=== PATIENT | female | born 1995 | race Caucasian/White ===

== ENCOUNTER 2017-08-19 08:18 | Emergency (ER) | payer SELFPAY ==
[~2017-08-19] VITALS: Ht 160 cm; Wt 92.5 kg
[2017-08-19 08:28] VITALS: BP 144/98
--- NOTE | 2017-08-19 09:07 | RAD ---
EXAM: Left shoulder, 3 views. HISTORY: Pain. COMPARISON: None. FINDINGS: 3 views of the left shoulder obtained. There is no fracture, dislocation or subluxation. IMPRESSION: No acute osseous finding. Electronically signed by: Sarita Bardales MD (08/19/2017 9:04 AM) [facility]
[2017-08-19] MEDS ORDERED: IBUP800T19 PO (09:15)
--- NOTE | 2017-08-19 09:15 | PHYS DOC ---
Past History Past Medical History: No Pertinent History Past Surgical History: No Surgical History Alcohol Use: None Drug Use: None Adult General Chief Complaint Chief Complaint: SHOULDER INJURY HPI HPI 21-year-old right-handed female patient states she woke up at 2 AM because of left shoulder pain without known injury as a constant pain that getting worse with movement of her hand and episodes of fingers numbness of patient denies weakness, fever and chills, history of the same problem. Patient states she took ibuprofen with mild improvement of her pain. Review of Systems Review of Systems Constitutional: Denies fever or chills [] Eyes: Denies change in visual acuity, redness, or eye pain [] HENT: Denies nasal congestion or sore throat [] Respiratory: Denies cough or shortness of breath [] Cardiovascular: No additional information not addressed in HPI [] GI: Denies abdominal pain, nausea, vomiting, bloody stools or diarrhea [] : Denies dysuria or hematuria [] Musculoskeletal: Denies back pain , reports joint pain[] Integument: Denies rash or skin lesions [] Neurologic: Denies headache, focal weakness or sensory changes [] Endocrine: Denies polyuria or polydipsia [] All other systems were reviewed and found to be within normal limits, except as documented in this note. Allergies Allergies Allergies Coded Allergies Type Severity Reaction Last Updated Verified latex Allergy Unknown 08/19/17 Yes Physical Exam Physical Exam Constitutional: Well developed, well nourished, mild distress, non-toxic appearance. [] HENT: Normocephalic, atraumatic Eyes: PERRLA, EOMI, conjunctiva normal, no discharge. [] Neck: Normal range of motion, no tenderness, supple, no stridor. [] Cardiovascular:Heart rate regular rhythm, no murmur [] Lungs & Thorax: Bilateral breath sounds clear to auscultation [] Extremities: Right shoulder without deformity or ecchymosis, limited range of motion secondary to pain, no neurovascular deficit Neurologic: Alert and oriented X 3, normal motor function, normal sensory function, no focal deficits noted. [] Psychologic: Affect normal, judgement normal, mood normal. [] Current Patient Data Vital Signs Vital Signs Date Time Temp Pulse Resp B/P (MAP) Pulse Ox O2 Delivery O2 Flow Rate FiO2 08/19/17 08:34 20 Room Air 08/19/17 08:28 98.3 88 97 EKG EKG [] Radiology/Procedures Radiology/Procedures [][address] [address] IMAGING REPORT Signed PATIENT: MICHELLE LOVE ACCOUNT: [id number] : 1995 LOCATION: ER AGE: 21 SEX: F EXAM STATUS: REG ER ORD. PHYSICIAN: MARILYN MAYNARD MD REASON: injury PROCEDURE: SHOULDER 2+V LEFT EXAM: Left shoulder, 3 views. HISTORY: Pain. COMPARISON: None. FINDINGS: 3 views of the left shoulder obtained. There is no fracture, dislocation or subluxation. IMPRESSION: No acute osseous finding. Electronically signed by: Sarita Méndez MD (08/19/2017 9:04 AM) [facility] DICTATED AND SIGNED BY: SARITA MÉNDEZ MD DATE: 08/19/17902 CC: MARILYN MAYNARD MD; PCP,NO ~ Course & Med Decision Making Course & Med Decision Making discharge: I've spoken with the patient and/or caregivers. I've explained the patient's condition, diagnosis and treatment plan based on information available to me at this time. I've answered the patient's and/or caregivers questions and addressed any concerns. The patient and/or caregivers have a good understanding the patient's diagnosis, condition and treatment plan as can be expected at this point. Vital signs have been stabilized. The patient's condition is stable for discharge from the emergency department. The patient will pursue further outpatient evaluation with her primary care provider or other designated consulting physician as outlined in the discharge instructions. Patient and/or caregivers are agreeable to this plan of care and follow-up instructions have been explained in detail. The patient and/or caregivers have received these instructions in written format and expressed understanding of these discharge instructions. The patient and her caregivers are aware that if any significant change in condition or worsening of symptoms should prompt him to immediately return to this of the closest emergency department. If an emergent department is not readily available I would encourage him to call 911. Garrett Disclaimer Dragon Disclaimer This electronic medical record was generated, in whole or in part, using a voice recognition dictation system. Departure Departure: Impression: Primary Impression: Sprain of left shoulder Disposition: HOME, SELF-CARE (At 0912) Condition: STABLE Referrals: PCP,BRYANNA (PCP) Patient Instructions: Shoulder Sprain, Sling Use After Injury or Surgery, Easy- to-Read Additional Instructions: Apply ice on the affected area Follow-up with your primary care physician in 3-5 days Return to ER if not getting better Scripts Ibuprofen (IBUPROFEN) 800 Mg Tablet 1 TAB PO TID, #30 TAB Prov: MARILYN MAYNARD MD 08/19/17 MARILYN MAYNARD MD Aug 19, 2017 09:15
== END 2017-08-19 09:29 | disposition home or self-care (01) ==
LOC: ER 08:18
DX: S43.402A Unspecified sprain of left shoulder joint, initial encounter (principal); Z91.040 Latex allergy status; X58.XXXA Exposure to other specified factors, initial encounter; Y93.89 Activity, other specified; Y99.8 Other external cause status; Y92.89 Other specified places as the place of occurrence of the external cause
CPT/HCPCS: 73030; 99284

== ENCOUNTER 2021-01-21 10:10 | Emergency (ER) | payer SELFPAY ==
[~2021-01-21] VITALS: Ht 160 cm; Wt 106.8 kg
[~2021-01-21 10:10] MED LIST: IBUP800T19 PO
[2021-01-21 11:12] VITALS: BP 139/93
[2021-01-21] MEDS ORDERED: ONDANSETRON ODT 4 MG TAB.RAPDIS PO ONE (11:30)
--- NOTE | 2021-01-21 11:33 | PHYS DOC ---
Past History Past Medical History: No Pertinent History (PORTILLO DE LA TORRE APRN) Past Surgical History: No Surgical History (PORTILLO DE LA TORRE APRN) Alcohol Use: None Drug Use: None (PORTILLO DE LA TORRE APRN) Adult General Chief Complaint Chief Complaint: CHEST PAIN HPI HPI Patient is a 25-year-old female who presents emergency department complaining of mid right-sided back pain for the past 3 days, patient reports a similar episode last week that seemed to self resolve. Patient reports taking 1 tablet of 800 mg ibuprofen last night without relief in her 10 out of 10 back pain. Patient reports it seems to be getting worse and radiating up to her chest area. Patient denies shortness of breath, fever chills, vomiting or diarrhea, patient reports she feels a little nausea. Reports she has not had a period in approximately 3 years and uses an IUD. Patient denies prescription medication use. Patient denies increased urinary frequency, burning with urination, urinary pressure, denies vaginal discharge, denies abdominal pains or discomfort, denies STI concerns. Patient states she works at [employer] and lifts heavy boxes, denies back injury however states she could have strained her back and not realized it. Patient denies history of IV drug use, denies history of immunosuppression, cancers, bowel or bladder incontinence, denies urinary retention, denies numbness or tingling to her genitals or buttocks. Patient denies other physical complaints or physical concerns. (PORTILLO DE LA TORRE APRN) Review of Systems Review of Systems 14 body systems of review of systems have been reviewed. See HPI for pertinent positives and negative responses, otherwise all other systems are negative, nonpertinent or noncontributory. Constitutional: Negative except as outlined in HPI above. Skin: Negative except as outlined in HPI above. Eyes: Negative except as outlined in HPI above. HENT: Negative except as outlined in HPI above. Respiratory: Negative except as outlined in HPI above. Cardiovascular: Negative except as outlined in HPI above. GI: Negative except as outlined in HPI above. : Negative except as outlined in HPI above. Musculoskeletal: Negative except as outlined in HPI above. Integument: Negative except as outlined in HPI above. Neurologic: Negative except as outlined in HPI above. Endocrine: Negative except as outlined in HPI above. Lymphatic: Negative except as outlined in HPI above. Psychiatric: Negative except as outlined in HPI above. (PORTILLO DE LA TORRE APRN) Current Medications Current Medications Current Medications Medications (Trade) Dose Ordered Sig/Fred Start Time Stop Time Status Last Admin Dose Admin Ondansetron HCl (Zofran Odt) 4 mg 1X ONCE 01/21/21 11:30 01/21/21 11:31 UNV (PORTILLO DE LA TORRE APRN) Allergies Allergies Allergies Coded Allergies Type Severity Reaction Last Updated Verified latex Allergy Unknown 08/19/17 Yes (OPRTILLO DE LA TORRE APRN) Physical Exam Physical Exam Constitutional: Well developed, well nourished, no acute distress, non-toxic appearance. 24-year-old female in no apparent distress. HENT: Normocephalic, atraumatic. Eyes: Conjunctiva normal, no discharge. Neck: Normal range of motion, no stridor. Cardiovascular: No cyanosis appreciated, distal cap refill less than 2 seconds. Lungs & Thorax: Patient is in no respiratory distress, no audible adventitious lung sounds appreciated. Abdomen: Nontender, no abnormalities noted. Skin: Warm, dry, no erythema, no rash. Back: No deformities appreciated, no left-sided or right-sided CVA TTP, no midline spinal tenderness to palpation, pain to palpation of mid thoracic right- sided back muscular structures. Extremities: No tenderness, no cyanosis, no clubbing, ROM intact, no edema. Neurologic: Alert and oriented X 3, normal motor function, normal sensory function, no focal deficits noted. Psychologic: Affect normal, judgement normal, mood normal. (PORTILLO DE LA TORRE APRN) Current Patient Data Vital Signs Vital Signs Date Time Temp Pulse Resp B/P (MAP) Pulse Ox O2 Delivery O2 Flow Rate FiO2 01/21/21 11:12 98.0 76 16 139/93 (108) 98 Room Air (PORTILLO DE LA TORRE APRN) EKG EKG EKG performed at 1034 by ED nursing staff shows normal sinus rhythm without other ectopy, paraneural 0.126, QTc interval 0.448, heart rate 78 bpm, no acute STEMI, no ACS, no acute ischemia appreciated, EKG interpreted by ED attending physician Dr. Li. (PORTILLO DE LA TORRE APRN) Radiology/Procedures Radiology/Procedures STATUS: REG ER ORD. PHYSICIAN: PORTILLO DE LA TORRE APRN REASON: Chest pain PROCEDURE: CHEST AP ONLY Single view of the chest. 01/21/2021 11:33 AM Indication: Reason: Chest pain Comparison: None Findings: There is no focal consolidation. There is no pleural effusion or pneumothorax. The cardiomediastinal silhouette and pulmonary vasculature are within normal limits. No acute osseous abnormalities are seen. Impression: No evidence of acute cardiopulmonary process. Electronically signed by: James Koroma MD (01/21/2021 12:04 PM) [id number] (PORTILLO DE LA TORRE APRN) Heart Score C/O Chest Pain: Yes HEART Score for Chest Pain: HEART Score for Chest Pain Response (Comments) Value History Slighlty/Non-Suspicious 0 ECG Normal 0 Age < 45 0 Risk Factors 1 or 2 Risk Factors 1 Total 1 Risk Factors: Risk Factors: DM, Current or recent (<one month) smoker, HTN, HLP, family history of CAD, obesity. Risk Scores: Risk Factors: DM, Current or recent (<one month) smoker, HTN, HLP, family history of CAD, obesity. (PORTILLO DE LA TORRE APRN) Course & Med Decision Making Course & Med Decision Making Pertinent Labs and Imaging studies reviewed. (See chart for details) 25-year-old female, vital signs reviewed, presents emergency department concerning right mid back pain. Physical examination consistent with musculoskeletal strain, will order urinalysis assay, EKG related to patient's complaint of radiation to the chest area, urine test, chest x-ray. Patient is EKG unremarkable, chest x-ray nonconcerning, the patient's urine is not infected, she is not . This is most likely musculoskeletal strain, discussed findings with patient who is asking for work excuse for the next 2 days. Discussed will start on muscle relaxer, NSAID therapy, strict follow-up with primary care physician for reevaluation, return to ER precautions and concerns, patient gave verbal understanding of and is amenable to ED discharge planning. Discussed with the patient all findings and diagnostic testing as well as the need to follow-up with their primary care provider for further evaluation and treatment or return to the ED if any new or worsening symptoms. Strict return precautions were also discussed at length, the patient voiced understanding and agreement with the discharge planning. The patient was nontoxic in appearance, in no apparent distress, and hemodynamically stable at the time of disposition. (PORTILLO DE LA TORRE APRN) Course & Med Decision Making I was the Attending physician on the above date of service of this patient. This patient was evaluated, examined, treated, and dispositioned from the emergency department by the mid-level practitioner. Although I was working at the time , no assistance was requested. Electronically signed, Katelyn Li DO (KATELYN LI DO) Garrett Disclaimer Dragon Disclaimer This electronic medical record was generated, in whole or in part, using a voice recognition dictation system. (PORTILLO DE LA TORRE APRN) Departure Departure: Impression: Primary Impression: Strain of mid-back Disposition: HOME / SELF CARE / HOMELESS Condition: GOOD Referrals: PCP,NO (PCP) Patient Instructions: Back Pain, Adult Additional Instructions: You are seen today in the emergency department for right mid back pain, an EKG was performed, chest x-ray, and lab work did not find any concerning findings. You are not , you do not have a urinary tract infection. This pain may be related to a muscle back strain from your work environment. I am providing you a work excuse for the next 2 days, I am prescribing you a muscle relaxer and an NSAID to take as needed for pain or discomfort. Please follow-up with your primary care physician for ongoing pain management. Return to the emergency department for worsening symptoms or other concerns. Thank you for visiting our Emergency Department. It was a pleasure taking care of you today in the emergency department and we appreciate you trusting us with your care. If any additional problems come up don't hesitate to return to visit us. Please follow up with your primary care provider so they can plan additional care if needed and know about the problem that you had. If symptoms worsen come back to the Emergency Department. Any concerning symptoms that start such as chest pain, shortness of air, weakness or numbness on one side of the body, running high fevers or any other concerning symptoms return to the ER. Scripts Ibuprofen (IBUPROFEN) 600 Mg Tablet 600 MG PO Q4-6HRS PRN for PAIN, #30 TAB 0 Refills Prov: PORTILLO DE LA TORRE APRN 01/21/21 Cyclobenzaprine Hcl (CYCLOBENZAPRINE HCL) 10 Mg Tablet 1 TAB PO TID PRN PRN for PAIN, #12 TAB 0 Refills Prov: PORTILLO DE LA TORRE APRN 01/21/21 Problem Qualifiers Primary Impression: Strain of mid-back Encounter type: initial encounter Qualified Codes: S29.012A - Strain of muscle and tendon of back wall of thorax, initial encounter PORTILLO DE LA TORRE APRN Jan 21, 2021 11:32 KATELYN LI DO Jan 22, 2021 07:53
--- NOTE | 2021-01-21 11:55 | EKG ---
[address] [address] Test Date: 2021-01-21 Test Time: 10:34:32 Pat Name: MICHELLE LOVE Department: Room: Gender: F [employer] Helper: DIANELYS : 1995 Requested By: PORTILLO DE LA TORRE Order Number: [id number] Reading MD: Gigi Tariq MD Measurements Intervals [place] Rate: 78 P: 57 DE: 126 QRS: 47 QRSD: 90 T: 46 QT: 390 QTc: 448 Interpretive Statements SINUS RHYTHM Electronically Signed On 01-23-2021 20:51:16 COMMODITIES REQUIREMENTS ANALYST by Gigi Tariq MD
--- NOTE | 2021-01-21 12:06 | RAD ---
Single view of the chest. 01/21/2021 11:33 AM Indication: Reason: Chest pain Comparison: None Findings: There is no focal consolidation. There is no pleural effusion or pneumothorax. The cardiome diastinal silhouette and pulmonary vasculature are within normal limits. No acute osseous abnormaliti es are seen. Impression: No evidence of acute cardiopulmonary process. Electronically signed by: James Koroma MD (01/21/2021 12:04 PM) [id number]
[2021-01-21 13:13] LABS: BACTERIA,URINE 0 /HPF (0-FEW); BILIRUBIN,URINE NEG (NEG); CLARITY,URINE CLEAR; COLOR,URINE YELLOW; GLUCOSE,URINE NEG (NEG); NITRITE,URINE NEG (NEG); RBC,URINE OCC /HPF (0-2); SQUAMOUS EPITHELIAL CELL,UR MANY /LPF; WBC,URINE 0 /HPF (0-4)
[2021-01-21 13:26] LABS: U PREG PATIENT NEGATIVE (NEG)
[2021-01-21] MEDS ORDERED: CYCL10TA19 PO (13:48)
[2021-01-21] MEDS ORDERED: IBUP600T16 PO (13:48)
== END 2021-01-21 14:00 | disposition home or self-care (01) ==
LOC: ER 10:10
DX: S29.012A Strain of muscle and tendon of back wall of thorax, initial encounter (principal); Z91.040 Latex allergy status; X58.XXXA Exposure to other specified factors, initial encounter; Y93.89 Activity, other specified; Y92.89 Other specified places as the place of occurrence of the external cause; Y99.8 Other external cause status
CPT/HCPCS: 71045; 81001; 81025; 93005; 99285; Q0162